=== PATIENT | male | born 1950 | race Caucasian/White ===

== ENCOUNTER 2018-03-24 18:47 | Emergency (ER) | payer BC ==
[2018-03-24 18:59] VITALS: BP 139/80; PULSE 82; TEMP 98.2; BMI 24.1
[2018-03-24] MEDS ORDERED: TETANUS AND DIPHTHERIA TOXOID 0.5 ML DISP.SYRIN IM ONE (20:17)
--- NOTE | 2018-03-24 20:23 | PDOC ---
History of Present Illness - General Chief Complaint: Injury Stated Complaint: FALL Time Seen by Provider: 03/24/18 20:05 - History of Present Illness Initial Comments: 03/24/18 20:20 67-year-old male with a past medical history significant for diabetes hypertension dyslipidemia and hypothyroidism presents for evaluation of bilateral leg pain. He states he walked into a low wall last night while coming out of a restaurant. He treated his wounds with local wound care and sterile dressings Past History - Past Medical History Allergies/Adverse Reactions: Allergies Allergy/AdvReac Type Severity Reaction Status Date / Time No Known Allergies Allergy Verified 07/13/13 19:00 Home Medications: Ambulatory Orders Atorvastatin Ca [Lipitor -] 10 mg PO HS 07/13/13 Finasteride [Propecia -] 0.5 mg PO DAILY 07/13/13 Hydrochlorothiazide [Hctz -] 12.5 mg PO BID 07/13/13 Levothyroxine [Synthroid -] 125 mcg PO DAILY 07/13/13 COPD: No HTN: Yes Hypercholesterolemia: Yes Thyroid Disease: Yes (HYPO) - Immunization History Immunization Up to Date: Yes - Suicide/Smoking/Psychosocial Hx Smoking History: Never smoked Hx Alcohol Use: No Drug/Substance Use Hx: No Substance Use Type: None Review of Systems - Review of Systems Musculoskeletal: Yes: See HPI *Physical Exam - Vital Signs Last Vital Signs Temp Pulse Resp BP Pulse Ox 98.2 F 82 16 139/80 95 03/24/18 18:56 03/24/18 18:56 03/24/18 18:56 03/24/18 18:56 03/24/18 18:56 - Physical Exam Comments: 03/24/18 20:21 Left lower leg full range of motion of the knee and ankle he bears weight without discomfort. There is a small superficial abrasion on the anterior distal third of the left noble buying calf are soft and nontender is neurovascularly intact. Right lower leg there is a small superficial abrasion on the distal third of the right noble buying calf are soft and nontender full nonpainful range of motion of the knee and ankle neurovascular intact Medical Decision Making - Medical Decision Making 03/24/18 20:22 I have cleaned the wounds and evaluated them there are superficial without any exposed tissue just lateral to the anterior tibia . *DC/Admit/Observation/Transfer Diagnosis at time of Disposition: Abrasion - Discharge Dispostion Disposition: HOME Condition at time of disposition: Stable Decision to Admit order: No - Referrals Referrals: Daryl Crawley MD [Staff Physician] - - Patient Instructions Printed Discharge Instructions: DI for Abrasion Additional Instructions: Please keep the wounds covered if they are oozing blood otherwise he may leave them open to air. May wash with soap and water in the shower. You may not take a bath until the wounds are healed. He may follow-up with orthopedic surgery in 2-3 days for further evaluation treatment and wound management or return to the emergency room should symptoms worsen or go unresolved. Your tetanus was updated today. - Post Discharge Activity
== END 2018-03-24 20:47 | disposition home or self-care (01) ==
LOC: JERFT 18:47
PROC: 3E0234Z Introduction of Serum, Toxoid and Vaccine into Muscle, Percutaneous Approach (ICD-10-PCS; principal; 2018-03-24)
DX: S80.812A Abrasion, left lower leg, initial encounter (principal); S80.811A Abrasion, right lower leg, initial encounter; W22.01XA Walked into wall, initial encounter; Y93.89 Activity, other specified; Y92.511 Restaurant or cafe as the place of occurrence of the external cause; Y99.8 Other external cause status; I10 Essential (primary) hypertension; E11.9 Type 2 diabetes mellitus without complications; Z79.84 Long term (current) use of oral hypoglycemic drugs; E78.5 Hyperlipidemia, unspecified; E03.9 Hypothyroidism, unspecified
CPT/HCPCS: 99281-25